=== PATIENT | male | born 1955 | race African-American/Black ===

== ENCOUNTER 2017-12-17 19:54 | Emergency (ER) | payer BC ==
[~2017-12-17] VITALS: Ht 182.9 cm; Wt 102.7 kg
[~2017-12-17 19:54] MED LIST: AMOXICILLIN500 MG PO; AUGMENTIN875TAB PO; BACTRIM DS1 TAB OR; BACTROBAN2 % EX; CETIRIZ/PSE1 TAB PO; DIOVAN HC2 PO; DOXYCYCL HYC100 M3 OR; FLONASE NASAL50 MCG; LORTAB 7.57.5 MG PO; MELOXICAM7.5 MG PO; PERCOCET 5/325M1 TAB PO; ROBITUSSIN AC10 ML PO; SULAR17 MG PO; TIZANIDINE HCL4 M1 PO; ZITHROMAX500 MG PO; ZPAK PO; ZYRTEC-D AL1 PO
[2017-12-17 20:27] LABS: HEMATOCRIT 44.5 % (39.0-50.0); HEMOGLOBIN 14.1 g/dl (14.0-18.0); IMMATURE GRANULOCYTES 0.3 % (0.0-1.0); MEAN CELL VOLUME 70.3 fL CALC (80.0-100.0); MEAN CORPUSCULAR HGB 22.3 pG CALC (26.0-32.0); MEAN CORPUSCULAR HGB CONC 31.7 g/L CALC (32.0-36.0); NEUT# 1.68 thou/uL (1.82-7.42); RED BLOOD COUNT 6.33 mill/uL (4.70-6.10); RED CELL DISTRI WIDTH 18.4 % (11.5-15.5)
[2017-12-17 20:41] LABS: BUN 14 mg/dL (8-23); BUN/CREATININE RATIO 12 (12-20 (CALC)); CARBON DIOXIDE 27 mmol/l (22-30); CHLORIDE 99 mmol/l (95-108); CREATININE 1.2 mg/dL (0.7-1.3); ETHYL ALCOHOL 110 mg/dl (0-30); GFR > 60 ML/MIN (>=60 (CALC)); GFR FOR AFR.AMER. > 60 ML/MIN (>=60 (CALC)); SODIUM 142 mmol/l (137-146)
[2017-12-17 20:43] LABS: ANION GAP 20 (6-22 (CALC)); POTASSIUM 3.5 mmol/l (3.5-5.1)
[2017-12-17 21:13] LABS: BARBITURATES NEGATIVE (NEGATIVE); COCAINE NEGATIVE (NEGATIVE); METHADONE NEGATIVE (NEGATIVE); TETRAHYDROCANNABIONOL NEGATIVE (NEGATIVE); TRICYLIC ANTIDEPRESSANTS NEGATIVE (NEGATIVE)
[2017-12-17 21:14] LABS: OXCYCODONE NEGATIVE (NEGATIVE)
[2017-12-17] MEDS ORDERED: TRAMADOL HCL50 MG PO (22:40)
[2017-12-17] MEDS ORDERED: DOXYCYCL HYC100 MG PO (22:40)
[2017-12-17] MEDS ORDERED: IBUPROFEN600 MG PO (22:40)
[2017-12-17 22:47] VITALS: BP 110/62
== END 2017-12-17 23:04 | disposition home or self-care (01) | DRG 605 ==
LOC: ED 19:54
PROVIDERS: Family Medicine
PROC: 0JQP3ZZ Repair Left Lower Leg Subcutaneous Tissue and Fascia, Percutaneous Approach (ICD-10-PCS; principal; 2017-12-17)
DX: S81.812A Laceration without foreign body, left lower leg, initial encounter (principal); Z72.89 Other problems related to lifestyle; S91.012A Laceration without foreign body, left ankle, initial encounter; S86.322A Laceration of muscle(s) and tendon(s) of peroneal muscle group at lower leg level, left leg, initial encounter; V47.4XXA Person boarding or alighting a car injured in collision with fixed or stationary object, initial encounter; S80.812A Abrasion, left lower leg, initial encounter; S90.512A Abrasion, left ankle, initial encounter; Y92.414 Local residential or business street as the place of occurrence of the external cause

== ENCOUNTER 2018-09-17 01:15 | Emergency (ER) | payer BC ==
[~2018-09-17] VITALS: Ht 182.9 cm; Wt 108.0 kg
[~2018-09-17 01:15] MED LIST changes: +DOXYCYCL HYC100 MG PO; +IBUPROFEN600 MG PO; +TRAMADOL HCL50 MG PO
[2018-09-17 01:20] VITALS: BP 137/107
[2018-09-17] MEDS ORDERED: PEPCID20 MG PO (02:08)
[2018-09-17] MEDS ORDERED: MEDDOSEPAK PO (02:08)
[2018-09-17] MEDS ORDERED: BENADRYL 50MG C50 MG PO (02:08)
== END 2018-09-17 02:39 | disposition home or self-care (01) | DRG 916 ==
LOC: ED 01:15
DX: T78.49XA Other allergy, initial encounter (principal); I10 Essential (primary) hypertension; X58.XXXA Exposure to other specified factors, initial encounter

== ENCOUNTER 2021-07-09 11:14 | Emergency (ER) | payer BC ==
[~2021-07-09] VITALS: Ht 182.9 cm; Wt 103.0 kg
[~2021-07-09 11:14] MED LIST changes: +BENADRYL 50MG C50 MG PO; +MEDDOSEPAK PO; +PEPCID20 MG PO
[2021-07-09] MEDS ORDERED: VOLTAREN1%GEL TOP (11:27)
[2021-07-09] MEDS ORDERED: MOTRIN400 MG/TAB PO (11:27)
[2021-07-09] MEDS ORDERED: FLEXERIL5 M1 PO (11:27)
[2021-07-09 12:05] VITALS: BP 156/94
== END 2021-07-09 12:05 | disposition home or self-care (01) | DRG 552 ==
LOC: ED 11:14
DX: M54.6 Pain in thoracic spine (principal); I10 Essential (primary) hypertension; X50.0XXA Overexertion from strenuous movement or load, initial encounter; Y93.89 Activity, other specified; Y92.89 Other specified places as the place of occurrence of the external cause; Y99.0 Civilian activity done for income or pay

== ENCOUNTER 2021-09-22 07:29 | Day surgery (SDC) | payer BC ==
[~2021-09-22] VITALS: Ht 182.9 cm; Wt 103.0 kg
[~2021-09-22 07:29] MED LIST changes: +FLEXERIL5 M1 PO; +MOTRIN400 MG/TAB PO; +VOLTAREN1%GEL TOP
[2021-09-22 09:15] VITALS: BP 138/91
== END 2021-09-22 09:15 | disposition home or self-care (01) | DRG 951 ==
LOC: ENDO 07:29
PROVIDERS: ATTEND Surgery
PROC: 0DJD8ZZ Inspection of Lower Intestinal Tract, Via Natural or Artificial Opening Endoscopic (ICD-10-PCS; principal; 2021-09-22)
DX: Z12.11 Encounter for screening for malignant neoplasm of colon (principal); K57.30 Diverticulosis of large intestine without perforation or abscess without bleeding; I10 Essential (primary) hypertension

== ENCOUNTER 2024-11-22 21:13 | Emergency (ER) | payer MEDICARE ==
[~2024-11-22] VITALS: Ht 182.9 cm; Wt 103.0 kg
[2024-11-22] VITALS (7 sets, daily range): BP systolic 105–132; BP diastolic 73–96
[2024-11-22] MEDS ORDERED: DiphenhydrAMINE HCL 25 MG CPLT PO ONE ×2 (21:55→22:45)
[2024-11-22] MEDS ORDERED: DECADRON4 MG PO (22:17)
[2024-11-22] MEDS ORDERED: BENADRYL25 M1 PO (22:17)
[2024-11-22] MEDS ORDERED: EPIPEN 2-P0.3 MG/0.3 IM (22:17)
== END 2024-11-22 23:04 | disposition home or self-care (01) ==
LOC: ED 21:13
DX: L50.0 Allergic urticaria (principal); I10 Essential (primary) hypertension